=== PATIENT | male | born 1965 | race Caucasian/White ===

== ENCOUNTER 2019-10-25 10:02 | Emergency (ER) | payer MEDICARE, MEDICAID ==
[2019-10-25 10:33] LABS: HEMATOCRIT 47.9 % (39.0-50.0); HEMOGLOBIN 15.1 g/dl (14.0-18.0); IMMATURE GRANULOCYTES 0.6 % (0.0-5.0); MEAN CELL VOLUME 89.9 fL CALC (80.0-100.0); MEAN CORPUSCULAR HGB 28.3 pG CALC (26.0-32.0); MEAN CORPUSCULAR HGB CONC 31.5 g/dL CAL (32.0-36.0); NEUT# 12.38 thou/uL (1.82-7.42); RED BLOOD COUNT 5.33 mill/uL (4.70-6.10)
[2019-10-25 10:54] LABS: ALBUMIN 4.3 g/dL (3.2-5.0); ALKALINE PHOSPHATASE 66 u/l (38-126); ANION GAP 16 (6-22 (CALC)); BILIRUBIN, TOTAL 1.1 mg/dL (0.0-1.4); BUN 17 mg/dL (9-20); BUN/CREATININE RATIO 18 (12-20 (CALC)); CARBON DIOXIDE 29 mmol/l (22-30); CHLORIDE 94 mmol/l (95-108); GFR > 60 ML/MIN (>=60 (CALC)); GFR FOR AFR.AMER. > 60 ML/MIN (>=60 (CALC)); LIPASE 49 u/l (23-300); POTASSIUM 4.2 mmol/l (3.5-5.1); SGOT/AST 25 u/l (17-59); SODIUM 135 mmol/l (137-146); TOTAL PROTEIN 8.3 g/dL (6.3-8.2)
[2019-10-25 10:54] LABS: URINE BLOOD DIPSTICK LARGE (NEGATIVE); URINE COLOR YELLOW; URINE GLUCOSE - DIPSTICK NEGATIVE (NEGATIVE); URINE KETONE 15 mg/dL (NEGATIVE); URINE LEUK ESTERASE NEGATIVE (NEGATIVE); URINE NITRITE - DIPSTICK NEGATIVE (Negative); URINE PROTEIN - DIPSTICK TRACE mg/dL (NEG-TRACE); URINE SPECIFIC GRAVITY 1.025; URINE UROBILINOGEN - DIPSTICK 0.2 E.U./dL (0.2)
[2019-10-25 11:18] LABS: URINE BILIRUBIN - DIPSTICK NEGATIVE (NEGATIVE)
[2019-10-25 11:19] LABS: URINE BACTERIA FEW hpf; URINE RBC 25-50 RBC/hpf (0-5); URINE SQUAMOUS EPITHELIAL CELL FEW EPI/hpf (0-FEW)
[2019-10-25] MEDS ORDERED: AMLODIPINE BESY10 MG PO (15:05)
[2019-10-25] MEDS ORDERED: MAXZIDE PO (15:06)
[2019-10-25] MEDS ORDERED: CLONIDINE0.1 MG PO (15:07)
[2019-10-25] MEDS ORDERED: LISINOPRIL40 MG PO (15:07)
[2019-10-25] MEDS ORDERED: OMNI-PAC300 MG PO (15:30)
[2019-10-25] MEDS ORDERED: TAMSULOSIN0.4 MG PO (15:30)
[2019-10-25 15:55] VITALS: BP 121/60
== END 2019-10-25 16:10 | disposition home or self-care (01) ==
LOC: ED 10:02
PROVIDERS: Family Medicine
DX: R10.12 Left upper quadrant pain (principal); N39.0 Urinary tract infection, site not specified; N20.0 Calculus of kidney; I10 Essential (primary) hypertension; E11.9 Type 2 diabetes mellitus without complications

== ENCOUNTER 2019-10-26 14:59 | Emergency (ER) | payer MEDICARE, MEDICAID ==
[~2019-10-26] VITALS: Ht 182.9 cm; Wt 230.0 kg
[~2019-10-26 14:59] MED LIST: AMLODIPINE BESY10 MG PO; CLONIDINE0.1 MG PO; LISINOPRIL40 MG PO; MAXZIDE PO; OMNI-PAC300 MG PO; TAMSULOSIN0.4 MG PO
[2019-10-26 16:01] VITALS: BP 109/55
== END 2019-10-26 16:16 | disposition home or self-care (01) ==
LOC: ED 14:59
DX: N39.0 Urinary tract infection, site not specified (principal); I10 Essential (primary) hypertension; E11.9 Type 2 diabetes mellitus without complications

== ENCOUNTER 2022-07-03 12:40 | Emergency (ER) | payer OTHER, MEDICARE, MEDICAID ==
[~2022-07-03] VITALS: Ht 182.9 cm; Wt 254.0 kg
[2022-07-03 13:04] LABS: BASO% 0.2 % (0-3); EOS% 3.2 % (0-8); HEMOGLOBIN 14.4 g/dl (14.0-18.0); IMMATURE GRANULOCYTES 0.6 % (0.0-5.0); LYMPH% 14.4 % (15-41); MEAN CELL VOLUME 92.5 fL CALC (80.0-100.0); MEAN CORPUSCULAR HGB 28.3 pG CALC (26.0-32.0); MEAN CORPUSCULAR HGB CONC 30.6 g/dL CAL (32.0-36.0); MONO% 7.5 % (2-13); NEUT# 9.13 thou/uL (1.82-7.42); NEUT% 74.1 % (42-76); RED BLOOD COUNT 5.08 mill/uL (4.70-6.10); RED CELL DISTRI WIDTH 14.5 % (11.5-15.5)
[2022-07-03 13:20] LABS: ALKALINE PHOSPHATASE 63 u/l (38-126); ANION GAP 12 (6-22 (CALC)); BUN 17 mg/dL (9-20); BUN/CREATININE RATIO 18 (12-20 (CALC)); CARBON DIOXIDE 31 mmol/l (22-30); CHLORIDE 96 mmol/l (95-108); CREATININE 0.9 mg/dL (0.7-1.3); GFR FOR AFR.AMER. > 60 ML/MIN (>=60 (CALC)); GFR OTHER RACES > 60 ML/MIN (>=60 (CALC)); POTASSIUM 4.2 mmol/l (3.5-5.1); SGOT/AST 27 u/l (17-59); SODIUM 134 mmol/l (137-146); TOTAL PROTEIN 7.9 g/dL (6.3-8.2)
[2022-07-03 13:33] LABS: BILIRUBIN, TOTAL 0.4 mg/dL (0.2-1.3)
[2022-07-03] MEDS ORDERED: TRAMADOL HYDROC50 M1 PO (13:49)
[2022-07-03] MEDS ORDERED: OMNI-PAC300 MG PO (14:19)
[2022-07-03 14:28] VITALS: BP 130/75
[2022-07-03 14:32] LABS: URINE BILIRUBIN - DIPSTICK NEGATIVE (NEGATIVE); URINE BLOOD DIPSTICK MODERATE (NEGATIVE); URINE COLOR YELLOW; URINE GLUCOSE - DIPSTICK NEGATIVE (NEGATIVE); URINE KETONE NEGATIVE (NEGATIVE); URINE LEUK ESTERASE NEGATIVE (NEGATIVE); URINE PH 6.5 (4.5-8.0); URINE PROTEIN - DIPSTICK NEGATIVE (NEG-TRACE); URINE UROBILINOGEN - DIPSTICK 0.2 E.U./dL (0.2)
[2022-07-03 14:34] LABS: URINE NITRITE - DIPSTICK NEGATIVE (Negative)
== END 2022-07-03 14:50 | disposition home or self-care (01) | DRG 204 ==
LOC: ED 12:40
PROVIDERS: Family Medicine
DX: R07.81 Pleurodynia (principal); N39.0 Urinary tract infection, site not specified; I10 Essential (primary) hypertension

== ENCOUNTER 2022-12-30 23:34 | Inpatient (IN) | payer MEDICARE, MEDICAID ==
[~2022-12-30] VITALS: Ht 182.9 cm; Wt 240.0 kg
[~2022-12-30 23:34] MED LIST changes: +TRAMADOL HYDROC50 M1 PO
[2022-12-30 23:46] VITALS: BP 106/49
[2022-12-31] VITALS (48 sets, daily range): BP systolic 69–121; BP diastolic 28–68
[2022-12-31 00:38] LABS: HEMOGLOBIN 13.2 g/dl (14.0-18.0); IMMATURE GRANULOCYTES 1.5 % (0.0-5.0); MEAN CELL VOLUME 92.4 fL CALC (80.0-100.0); MEAN CORPUSCULAR HGB 30.3 pG CALC (26.0-32.0); MEAN CORPUSCULAR HGB CONC 32.8 g/dL CAL (32.0-36.0); PLATELET COUNT 221 thou/uL (130-400); RED BLOOD COUNT 4.36 mill/uL (4.70-6.10); RED CELL DISTRI WIDTH 15.5 % (11.5-15.5)
[2022-12-31 00:41] LABS: HEMATOCRIT 40.3 % (39.0-50.0)
[2022-12-31 00:51] LABS: MANUAL DIFFERENTIAL YES
[2022-12-31 00:54] LABS: ALBUMIN 3.6 g/dL (3.2-5.0); POTASSIUM 3.9 mmol/l (3.5-5.1); TOTAL PROTEIN 7.7 g/dL (6.3-8.2)
[2022-12-31 00:58] LABS: CREATININE 2.4 mg/dL (0.7-1.3)
[2022-12-31 00:59] LABS: BILIRUBIN, TOTAL 1.2 mg/dL (0.2-1.3)
[2022-12-31 01:03] LABS: BAND 0 % (0-8)
[2022-12-31 01:18] LABS: URINE BILIRUBIN - DIPSTICK Negative (NEGATIVE); URINE BLOOD DIPSTICK Large (NEGATIVE); URINE GLUCOSE - DIPSTICK Negative (NEGATIVE); URINE KETONE Trace mg/dL (NEGATIVE); URINE NITRITE - DIPSTICK Negative (Negative); URINE PH 5.5 (4.5-8.0); URINE PROTEIN - DIPSTICK 30 mg/dL (NEG-TRACE); URINE UROBILINOGEN - DIPSTICK 0.2 E.U./dL (0.2)
[2022-12-31 01:22] LABS: URINE COLOR Yellow; URINE LEUK ESTERASE Negative (NEGATIVE)
[2022-12-31 01:24] LABS: URINE BACTERIA MODERATE hpf; URINE COARSE GRANULAR CAST FEW lpf; URINE EPITHELIAL CELLS FEW EPI/hpf (0-FEW); URINE RBC 25-50 RBC/hpf (0-5)
[2022-12-31 13:33] LABS: POTASSIUM 3.3 mmol/l (3.5-5.1)
[2023-01-01] VITALS (7 sets, daily range): BP systolic 96–114; BP diastolic 51–62
[2023-01-01 06:09] LABS: EOS% 0.4 % (0-8); HEMATOCRIT 42.2 % (39.0-50.0); HEMOGLOBIN 13.3 g/dl (14.0-18.0); IMMATURE GRANULOCYTES 0.8 % (0.0-5.0); LYMPH% 5.7 % (15-41); MEAN CELL VOLUME 97.2 fL CALC (80.0-100.0); MEAN CORPUSCULAR HGB 30.6 pG CALC (26.0-32.0); MEAN CORPUSCULAR HGB CONC 31.5 g/dL CAL (32.0-36.0); MONO% 4.4 % (2-13); NEUT# 17.86 thou/uL (1.82-7.42); NEUT% 88.7 % (42-76); RED BLOOD COUNT 4.34 mill/uL (4.70-6.10); RED CELL DISTRI WIDTH 15.7 % (11.5-15.5)
[2023-01-01 06:23] LABS: ALBUMIN 3.1 g/dL (3.2-5.0); CREATININE 1.6 mg/dL (0.7-1.3); POTASSIUM 3.4 mmol/l (3.5-5.1); TOTAL PROTEIN 7.1 g/dL (6.3-8.2)
[2023-01-01 06:33] LABS: BILIRUBIN, TOTAL 0.5 mg/dL (0.2-1.3)
[2023-01-02 00:19] VITALS: BP 147/75
[2023-01-02 05:05] VITALS: BP 99/54
[2023-01-02 07:22] VITALS: BP 112/54
[2023-01-02 09:35] VITALS: BP 104/63
[2023-01-02 09:49] LABS: HEMATOCRIT 41.6 % (39.0-50.0); HEMOGLOBIN 12.9 g/dl (14.0-18.0); MEAN CELL VOLUME 97.4 fL CALC (80.0-100.0); MEAN CORPUSCULAR HGB 30.2 pG CALC (26.0-32.0); RED BLOOD COUNT 4.27 mill/uL (4.70-6.10); RED CELL DISTRI WIDTH 15.7 % (11.5-15.5)
[2023-01-02 10:20] LABS: ALBUMIN 2.7 g/dL (3.2-5.0); ALKALINE PHOSPHATASE 60 u/l (38-126); ANION GAP 10 (6-22 (CALC)); BILIRUBIN, TOTAL 0.5 mg/dL (0.2-1.3); BUN 22 mg/dL (9-20); BUN/CREATININE RATIO 18 (12-20 (CALC)); CARBON DIOXIDE 31 mmol/l (22-30); CHLORIDE 99 mmol/l (95-108); CREATININE 1.2 mg/dL (0.7-1.3); GFR FOR AFR.AMER. > 60 ML/MIN (>=60 (CALC)); GFR OTHER RACES > 60 ML/MIN (>=60 (CALC)); POTASSIUM 3.5 mmol/l (3.5-5.1); SGOT/AST 188 u/l (17-59); SODIUM 136 mmol/l (137-146); TOTAL PROTEIN 6.2 g/dL (6.3-8.2)
[2023-01-02 13:45] VITALS: BP 146/78
[2023-01-02 19:48] VITALS: BP 117/58
[2023-01-03 00:25] VITALS: BP 112/57
[2023-01-03 04:40] VITALS: BP 118/64
[2023-01-03 05:32] LABS: ALBUMIN 2.7 g/dL (3.2-5.0); ALKALINE PHOSPHATASE 60 u/l (38-126); ANION GAP 6 (6-22 (CALC)); BILIRUBIN, TOTAL 0.5 mg/dL (0.2-1.3); BUN 17 mg/dL (9-20); BUN/CREATININE RATIO 16 (12-20 (CALC)); CARBON DIOXIDE 34 mmol/l (22-30); CHLORIDE 100 mmol/l (95-108); CREATININE 1.1 mg/dL (0.7-1.3); GFR FOR AFR.AMER. > 60 ML/MIN (>=60 (CALC)); GFR OTHER RACES > 60 ML/MIN (>=60 (CALC)); POTASSIUM 3.7 mmol/l (3.5-5.1); SGOT/AST 129 u/l (17-59); SODIUM 137 mmol/l (137-146); TOTAL PROTEIN 6.3 g/dL (6.3-8.2)
[2023-01-03 05:33] LABS: BASO% 0.2 % (0-3); EOS% 1.9 % (0-8); HEMOGLOBIN 13.5 g/dl (14.0-18.0); IMMATURE GRANULOCYTES 3.5 % (0.0-5.0); LYMPH% 11.8 % (15-41); MEAN CELL VOLUME 98.4 fL CALC (80.0-100.0); MEAN CORPUSCULAR HGB 30.2 pG CALC (26.0-32.0); MEAN CORPUSCULAR HGB CONC 30.7 g/dL CAL (32.0-36.0); MONO% 8.6 % (2-13); NEUT# 8.37 thou/uL (1.82-7.42); RED BLOOD COUNT 4.47 mill/uL (4.70-6.10); RED CELL DISTRI WIDTH 15.7 % (11.5-15.5)
[2023-01-03 06:59] VITALS: BP 125/62
[2023-01-03 10:52] VITALS: BP 121/60
[2023-01-03 15:38] VITALS: BP 107/52
[2023-01-03 18:55] VITALS: BP 118/60
[2023-01-04] VITALS (7 sets, daily range): BP systolic 104–138; BP diastolic 50–70
[2023-01-04 06:18] LABS: BASO% 0.2 % (0-3); EOS% 2.4 % (0-8); HEMATOCRIT 41.4 % (39.0-50.0); IMMATURE GRANULOCYTES 4.9 % (0.0-5.0); LYMPH% 12.4 % (15-41); MEAN CELL VOLUME 97.9 fL CALC (80.0-100.0); MEAN CORPUSCULAR HGB 30.7 pG CALC (26.0-32.0); MEAN CORPUSCULAR HGB CONC 31.4 g/dL CAL (32.0-36.0); MONO% 6.7 % (2-13); NEUT# 10.02 thou/uL (1.82-7.42); NEUT% 73.4 % (42-76); RED BLOOD COUNT 4.23 mill/uL (4.70-6.10); RED CELL DISTRI WIDTH 15.4 % (11.5-15.5)
[2023-01-04 06:23] LABS: ALBUMIN 2.6 g/dL (3.2-5.0); ALKALINE PHOSPHATASE 60 u/l (38-126); ANION GAP 5 (6-22 (CALC)); BILIRUBIN, TOTAL 0.5 mg/dL (0.2-1.3); BUN 16 mg/dL (9-20); BUN/CREATININE RATIO 17 (12-20 (CALC)); CARBON DIOXIDE 36 mmol/l (22-30); CHLORIDE 99 mmol/l (95-108); CREATININE 0.9 mg/dL (0.7-1.3); GFR FOR AFR.AMER. > 60 ML/MIN (>=60 (CALC)); GFR OTHER RACES > 60 ML/MIN (>=60 (CALC)); MAGNESIUM 1.9 mg/dL (1.6-2.3); POTASSIUM 3.6 mmol/l (3.5-5.1); SGOT/AST 81 u/l (17-59); SODIUM 136 mmol/l (137-146)
[2023-01-05] VITALS (7 sets, daily range): BP systolic 116–131; BP diastolic 62–78
[2023-01-05 07:32] LABS: BASO% 0.2 % (0-3); HEMATOCRIT 43.8 % (39.0-50.0); HEMOGLOBIN 13.8 g/dl (14.0-18.0); LYMPH% 11.2 % (15-41); MEAN CELL VOLUME 96.1 fL CALC (80.0-100.0); MEAN CORPUSCULAR HGB 30.3 pG CALC (26.0-32.0); MEAN CORPUSCULAR HGB CONC 31.5 g/dL CAL (32.0-36.0); MONO% 5.8 % (2-13); NEUT# 9.1 thou/uL (1.82-7.42); NEUT% 73.2 % (42-76); RED BLOOD COUNT 4.56 mill/uL (4.70-6.10)
[2023-01-05 08:01] LABS: IMMATURE GRANULOCYTES 6.6 % (0.0-5.0)
[2023-01-05 08:45] LABS: ALBUMIN 2.6 g/dL (3.2-5.0); ALKALINE PHOSPHATASE 61 u/l (38-126); ANION GAP 7 (6-22 (CALC)); BILIRUBIN, TOTAL 0.4 mg/dL (0.2-1.3); BUN 13 mg/dL (9-20); BUN/CREATININE RATIO 17 (12-20 (CALC)); CARBON DIOXIDE 35 mmol/l (22-30); CHLORIDE 97 mmol/l (95-108); CREATININE 0.8 mg/dL (0.7-1.3); GFR FOR AFR.AMER. > 60 ML/MIN (>=60 (CALC)); GFR OTHER RACES > 60 ML/MIN (>=60 (CALC)); MAGNESIUM 1.7 mg/dL (1.6-2.3); POTASSIUM 3.6 mmol/l (3.5-5.1); SGOT/AST 58 u/l (17-59); SODIUM 135 mmol/l (137-146)
[2023-01-06 00:34] VITALS: BP 129/68
[2023-01-06 00:39] VITALS: BP 129/68
[2023-01-06 04:42] VITALS: BP 127/66
[2023-01-06 05:13] VITALS: BP 127/66
[2023-01-06 06:25] VITALS: BP 128/64
[2023-01-06 08:02] LABS: HEMOGLOBIN 13.7 g/dl (14.0-18.0); IMMATURE GRANULOCYTES 8.3 % (0.0-5.0); MEAN CELL VOLUME 96.1 fL CALC (80.0-100.0); MEAN CORPUSCULAR HGB 29.9 pG CALC (26.0-32.0); MEAN CORPUSCULAR HGB CONC 31.1 g/dL CAL (32.0-36.0); PLATELET COUNT 309 thou/uL (130-400); RED BLOOD COUNT 4.58 mill/uL (4.70-6.10)
[2023-01-06 08:03] LABS: MANUAL DIFFERENTIAL YES
[2023-01-06] MEDS ORDERED: LINEZOLID600 MG PO (08:06)
[2023-01-06 08:22] LABS: ALBUMIN 2.9 g/dL (3.2-5.0); ALKALINE PHOSPHATASE 58 u/l (38-126); ANION GAP 6 (6-22 (CALC)); BILIRUBIN, TOTAL 0.4 mg/dL (0.2-1.3); BUN 12 mg/dL (9-20); BUN/CREATININE RATIO 15 (12-20 (CALC)); CARBON DIOXIDE 36 mmol/l (22-30); CHLORIDE 95 mmol/l (95-108); CREATININE 0.8 mg/dL (0.7-1.3); GFR FOR AFR.AMER. > 60 ML/MIN (>=60 (CALC)); GFR OTHER RACES > 60 ML/MIN (>=60 (CALC)); MAGNESIUM 1.9 mg/dL (1.6-2.3); POTASSIUM 3.5 mmol/l (3.5-5.1); SGOT/AST 54 u/l (17-59); SODIUM 134 mmol/l (137-146); TOTAL PROTEIN 6.8 g/dL (6.3-8.2)
[2023-01-06 08:40] VITALS: BP 128/64
[2023-01-06 08:46] LABS: BAND 1 % (0-8); POIKILOCYTOSIS FEW
[2023-01-06 08:47] LABS: PLATELET ESTIMATE NORMAL
== END 2023-01-06 11:06 | DRG 872 ==
LOC: ED 23:34 → ED-I 12-31 13:05 → ED 12-31 13:36 → MS2 12-31 13:37
PROVIDERS: Emergency Medicine; Family Medicine; Nurse Practitioner Family; ADMIT Student in an Organized Health Care Education/Training Program; ATTEND Student in an Organized Health Care Education/Training Program
DX: A41.9 Sepsis, unspecified organism (principal); L03.115 Cellulitis of right lower limb; N39.0 Urinary tract infection, site not specified; N17.9 Acute kidney failure, unspecified; R65.20 Severe sepsis without septic shock; I95.9 Hypotension, unspecified; E86.0 Dehydration; I10 Essential (primary) hypertension; E11.9 Type 2 diabetes mellitus without complications; E03.9 Hypothyroidism, unspecified; R09.02 Hypoxemia; E66.01 Morbid (severe) obesity due to excess calories; M79.3 Panniculitis, unspecified; N20.9 Urinary calculus, unspecified; B95.7 Other staphylococcus as the cause of diseases classified elsewhere; Z59.1 Inadequate housing; Z20.822 Contact with and (suspected) exposure to COVID-19
CPT/HCPCS: J0692; J1650; J3370